=== PATIENT | female | born 1990 | race African-American/Black ===

== ENCOUNTER 2019-10-18 10:27 | Emergency (ER) | payer SELFPAY ==
[~2019-10-18] VITALS: Ht 167.6 cm; Wt 54.0 kg
[~2019-10-18 10:27] MED LIST: none reported
[2019-10-18 10:48] VITALS: BP 101/69
== END 2019-10-18 12:24 | disposition home or self-care (01) ==
LOC: ER 10:27
DX: J06.9 Acute upper respiratory infection, unspecified (principal); F12.10 Cannabis abuse, uncomplicated; Z88.6 Allergy status to analgesic agent
CPT/HCPCS: 99282

== ENCOUNTER 2019-10-26 15:43 | Emergency (ER) | payer SELFPAY ==
[~2019-10-26] VITALS: Ht 162.6 cm; Wt 49.0 kg
[2019-10-26] MEDS ORDERED: SODIUM CHLORIDE 0.9% 1,000 ML IV ONE (19:27)
[2019-10-26] MEDS ORDERED: METHYLPREDNISOLONE SOD SUCC 125 MG/2 ML VIAL IV STA (19:27)
[2019-10-26] MEDS ORDERED: IPRATROPIUM/ALBUTEROL 0.5-3(2.5)MG/3ML NEB HHN ONE (19:30)
[2019-10-26] MEDS ORDERED: AZITHROMYCIN 500 MG in DEXT 5% WATER 250 ML IV SCH (19:30)
[2019-10-26 20:29] LABS: HCG SCREEN NEGATIVE
[2019-10-26 21:50] VITALS: BP 122/84
== END 2019-10-26 22:02 | disposition home or self-care (01) ==
LOC: ER 15:43
DX: J40 Bronchitis, not specified as acute or chronic (principal); E86.0 Dehydration; M79.10 Myalgia, unspecified site; R11.2 Nausea with vomiting, unspecified; R07.89 Other chest pain; Z88.5 Allergy status to narcotic agent; Z88.6 Allergy status to analgesic agent
CPT/HCPCS: 71045; 81025; 84703; 96365; 96375; 99284; J0456; J2930; J7030; J7060; J7620